=== PATIENT | male | born 1980 | race Two or more races ===

== ENCOUNTER 2018-02-26 17:23 | Emergency (ER) | payer OTHER ==
[~2018-02-26] VITALS: Ht 170.2 cm; Wt 81.8 kg
[~2018-02-26 17:23] MED LIST: NO HOME MEDS
[2018-02-26 18:21] VITALS: BP 143/79
== END 2018-02-26 18:23 ==
LOC: EEVIPCON 17:23 → ER 17:23
DX: K46.9 Unspecified abdominal hernia without obstruction or gangrene (principal); Z98.890 Other specified postprocedural states; Z56.0 Unemployment, unspecified
CPT/HCPCS: 99283

== ENCOUNTER 2024-12-08 07:12 | Emergency (ER) | payer MEDICAID, OTHER ==
[~2024-12-08] VITALS: Ht 170.2 cm; Wt 72.7 kg
[2024-12-08 07:15] VITALS: BP 132/87; PULSE 100; RESP 16; TEMP 97.6; O2SAT 100
[2024-12-08] MEDS ORDERED: BUPR1FIL3 SL (07:27)
== END 2024-12-08 07:35 | disposition home or self-care (01) ==
LOC: ER 07:13
DX: F11.10 Opioid abuse, uncomplicated (principal); Z56.0 Unemployment, unspecified; Z72.89 Other problems related to lifestyle; Z76.0 Encounter for issue of repeat prescription
CPT/HCPCS: 99281; 99283

== ENCOUNTER 2025-04-29 15:23 | Emergency (ER) | payer MEDICAID ==
[~2025-04-29] VITALS: Ht 170.2 cm; Wt 81.0 kg
[~2025-04-29 15:23] MED LIST changes: +BUPR1FIL3 SL
[2025-04-29 15:29] VITALS: BP 138/86; PULSE 93; RESP 18; O2SAT 100
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
[2025-04-29 17:02] VITALS: TEMP 97.6
[2025-04-29] MEDS: buprenorphine/naloxone 8MG-2MG SUBlingual film SL STA (17:02)
== END 2025-04-29 17:06 | disposition home or self-care (01) ==
LOC: ER 15:24
DX: F11.90 Opioid use, unspecified, uncomplicated (principal); Z76.0 Encounter for issue of repeat prescription; Z79.899 Other long term (current) drug therapy; Z72.89 Other problems related to lifestyle; Z56.0 Unemployment, unspecified
CPT/HCPCS: 99283

== ENCOUNTER 2025-05-06 13:27 | Emergency (ER) | payer MEDICAID ==
[~2025-05-06] VITALS: Ht 175.3 cm; Wt 82.9 kg
[2025-05-06 14:02] VITALS: BP 149/82; PULSE 89; RESP 18; O2SAT 98
--- NOTE | 2025-05-06 15:15 | Physician Documentation ---
History of Present Illness ~ Chief Complaint: Weakness Stated Complaint: DEHYDRATED Time Seen by MD: 14:07 OK to notify your PCP?: Yes Primary Medical Doctor: none Source: patient, RN/ HPI Patient is seen today with complaints of muscle soreness and stiffness over the last few days. Patient states he thinks he might be dehydrated yet he states he has drank almost a gal of water this morning. Patient states he is currently living at the [facility] and also states that he did over take his Suboxone yesterday and today stating he took five strips yesterday when he has only prescribed three per day. Patient denies any chest pain or shortness of breath or abdominal pain or nausea, vomiting, diarrhea. Patient has no other concern or complaint at this time. Medication Reconciliation Allergies: Coded Allergies: No Known Allergies (Unverified , 05/06/25) Scheduled Buprenorphine Hcl/Naloxone Hcl (Suboxone 8 Mg-2 Mg Sl Film), 1 STRIP SL DAILY, (Reported) Buprenorphine Hcl/Naloxone Hcl (Suboxone 8 Mg-2 Mg Sl Film), 1 STRIP SL DAILY Discontinued Medications Buprenorphine Hcl/Naloxone Hcl (Suboxone 8 Mg-2 Mg Sl Film), 1 STRIP SL DAILY, (Reported) Discontinued Reason: patient no longer taking Home Med List (No Home Medications), (Reported) Discontinued Reason: patient no longer taking Past Medical History Past Medical History: No Pertinent History Past Surgical History: abdominal surgery Alcohol Use: Occasionally Lives with: Other Occupation: unemployed Review of Systems Constitutional: Denies: chills, fever, weakness Eyes: Denies: pain, blurred vision ENT: Denies: ear pain, nose pain, throat pain, mouth pain Respiratory: Denies: cough, shortness of breath Cardiovascular: Denies: chest pain, palpitations Gastrointestinal: Denies: abdominal pain, nausea, vomiting Genitourinary: Denies: burning, dysuria Male Genitalia: Denies: penile discharge, testicular pain Neurological: Denies: headache, dizziness Musculoskeletal: Denies: pain, swelling Integumentary: Denies: rash, lesions Allergic/Immunologic: Denies: hives, itching Hematologic/Lymphatic: Denies: no symptoms reported Psychiatric: Denies: depression, anxiety Physical Exam Vital Signs: Temperature: 97.8, Source: Temporal, Heart Rate: 89, Respiratory Rate: 18, BP: 149/82, Pulse Oximetry: 98, Weight: 82.900 Physical Exam General: Awake and Alert, no acute distress. HEENT: Conjunctiva pink, Sclera clear, Mucus Membranes moist. Neck: Supple without masses and tenderness. Resp: Unlabored. Lungs clear to auscultation bilaterally. Heart: Regular Rate and rhythm, normal S1 and S2 without murmur, rub or gallop. Abdomen: Soft and non tender no organomegaly Extremities: No cyanosis,clubbing or edema. Skin: Warm and Dry. Progress Results/Orders Results/Orders Vital Signs 05/06/25 14:02 Temp 97.8 Pulse 89 Resp 18 B/P (MAP) 149/82 Pulse Ox 98 Medical Decision Making Findings Patient is seen today with complaints of muscle soreness and stiffness over the last few days. Patient states he thinks he might be dehydrated yet he states he has drank almost a gal of water this morning. Patient states he is currently living at the [facility] and also states that he did over take his Suboxone yesterday and today stating he took five strips yesterday when he has only prescribed three per day. Patient denies any chest pain or shortness of breath or abdominal pain or nausea, vomiting, diarrhea. Patient has no other concern or complaint at this time. I did strongly advise patient to not over take his Suboxone anymore. I also advised patient to continue healthy diet and exercise level and stay well hydrated. Patient was given a pair of socks. Patient will return to ED with any worsening, concerning or changing symptoms. Departure Disposition: HOME / SELF CARE / HOMELESS Impression: Primary Impression: Opioid use disorder Condition: Improved Additional Instructions: I did strongly advise patient to not over take his Suboxone anymore. I also advised patient to continue healthy diet and exercise level and stay well hydrated. Patient was given a pair of socks. Patient will return to ED with any worsening, concerning or changing symptoms. Referrals: NO PRIMARY CARE PROVIDER (PCP) Signature Scribe Signature: No scribe Attestation: No scribe LUIS A CLIFFORD PAC May 06, 2025 15:15
[2025-05-06 15:25] VITALS: TEMP 97.8
== END 2025-05-06 15:28 | disposition home or self-care (01) ==
LOC: ER 13:28
DX: F11.10 Opioid abuse, uncomplicated (principal); Z79.899 Other long term (current) drug therapy; Z72.89 Other problems related to lifestyle; Z56.0 Unemployment, unspecified
CPT/HCPCS: 99283

== ENCOUNTER 2025-07-28 15:35 | Emergency (ER) | payer MEDICAID ==
[~2025-07-28] VITALS: Ht 170.2 cm; Wt 77.3 kg
[~2025-07-28 15:35] MED LIST changes: -NO HOME MEDS
[2025-07-28 15:39] VITALS: TEMP 97.8
[2025-07-28] MEDS ORDERED: buprenorphine/naloxone 8MG-2MG SUBlingual film SL SCH ×2 (16:00→17:05)
--- NOTE | 2025-07-28 16:46 | Physician Documentation ---
HPI ~ General Chief Complaint: Medication Request Stated Complaint: MED REQUEST Time Seen by MD: 15:40 Primary Medical Doctor: none History of Present Illness HPI Comments Patient is a 45-year-old male that presents to the emergency department for medication administration. Patient reports that he was seen here this morning and given his dose of Suboxone. Patient reports that he doubled up on his Suboxone due to the dose that he was given this morning not being adequate as he takes 24 mg a day not 12 per patient. Patient does not have a follow up appointment until Monday to see a primary care provider or provider that helps him with his rehabilitation. Patient reports that he does not believe that he is currently having any withdrawal symptoms but he does not want to withdrawal later. Medication Reconciliation Allergies: Coded Allergies: No Known Allergies (Unverified , 07/28/25) Scheduled Buprenorphine Hcl/Naloxone Hcl (Suboxone 8 Mg-2 Mg Sl Film), 1 STRIP SL DAILY, (Reported) Past Medical History Past Medical History: No Pertinent History Past Surgical History: abdominal surgery Alcohol Use: Occasionally Lives with: Other Occupation: unemployed Review of Systems ROS As stated above in the HPI, otherwise all systems are reviewed and negative. Physical Exam Physical Exam Vital Signs: Temperature: 97.8, Source: Temporal, Heart Rate: 87, Respiratory Rate: 18, BP: 130/91, Pulse Oximetry: 98, Weight: 77.270 Physical Exam VITALS: Reviewed and as above. GENERAL: Alert, no apparent distress. HEENT: Normocephalic, atraumatic, PERRL, EOMI, dry mucosa, no erythema RESPIRATORY: Lungs clear, normal breath sounds, no respiratory distress. CHEST: No accessory muscle use, no retractions CV: Regular rate, rhythm, no edema, no murmur, No: JVD GI: Soft, non-tender, bowels sounds present, no rebound, guarding, or rigidity BACK: No CVA tenderness, or swelling MUSCULOSKELETAL No deformities, no edema SKIN: Warm and dry, no rash NEURO: Oriented x4, No motor or sensory deficit PSYCH: Normal mood and affect, no agitation Progress Results/Orders Results/Orders Orders - JAELYN WEBSTER CURB WORKER Buprenorphine/Naloxone Sl Film (Suboxone (07/28/25 16:00) Vital Signs 07/28/25 15:39 Temp 97.8 Pulse 87 Resp 18 B/P (MAP) 130/91 Pulse Ox 98 Medical Decision Making Additional info obtained from: other Findings This patient presents with back pain most consistent with musculoskeletal spasm /strain/cervical radiculopathy. No back pain red flags on history or physical. Presentation not consistent with malignancy (lack of history of malignancy, lack of B symptoms), fracture (no trauma, no bony tenderness to palpation), transverse myelitis, (no sensory loss, no distal weakness), thoracic aortic dissection (equal peripheral pulses, no tachycardia, story does not fit), pn eumonia (afebrile, no infectious symptoms), pulmonary embolism (Wells low risk), osteomyelitis or epidural abscess (no IVDU, vertebral tenderness). No concern for cardiac involvement at this time has 12 lead chest x-ray troponin and lab work all normal. X-ray of the cervical spine is without abnormality other than degenerative changes this time. Patient was given Toradol and Fl exeril with significant improvement. Patient will be prescribed 5 days of Toradol with strict instructions and education regarding how to take this medication. Patient was educated on not driving or operating equipment while taking this medication. Patient was also instructed to not take the medication if his symptoms subside and he does not need the medication. With his primary care provider. Patient will return to the emergency department with any worsening of his current symptoms or any additional concerning symptoms that we discussed here today i.e. increased pain increased numbness or tingling in his extremities fever chills nausea vomiting bladder incontinence numbness to his perineum or any other concerning symptoms that we discussed here today. Differential Dx:Considerations: Include: Adverse circumstances, Economic, Psychosocial, Medical services unavail., Medication refill, Medication non- compliance, Other Departure Disposition: HOME / SELF CARE / HOMELESS Impression: Primary Impression: General medical exam Additional Impression: Encounter for monitoring Suboxone maintenance therapy Condition: Stable Discharge Instructions: Medicine Refill at the Emergency Department, Medical Screening Exam Additional Instructions: Was seen here in the emergency department today for evaluation of medication administration of his Suboxone that he takes for opioid addiction specifically fentanyl. Patient was seen here this morning and given a dose of of Suboxone time. Patient reports that he was given an additional dose for tomorrow but he took that dose today due to the initial dose only being half of what he is supposed to take daily. Patient reports that he has a follow up appointment monday and will start withdrawing or have to use fentanyl again if he does not get a dose of Suboxone. Patient was given 12 mg of Suboxone here today patient will follow up tomorrow and either request clonidine or Suboxone. Discussed with the patient that it will be provider dependent tomorrow and that the patient needs to follow up with his rehabilitation tech on Monday. Referrals: NO PRIMARY CARE PROVIDER (PCP) Education Educated: Patient Educated regarding: diagnosis, treatment, need for follow up Signature Scribe Signature: A Attestation: Scribed for Jaelyn Webster by SHIRLENE Cespedes . 07/28/25 16:47 JAELYN WEBSTER Jul 28, 2025 16:46
[2025-07-28 17:14] VITALS: BP 130/91; PULSE 87; RESP 16; O2SAT 98
[2025-07-28] MEDS: buprenorphine/naloxone 8MG-2MG SUBlingual film SL SCH (17:31)
== END 2025-07-28 17:42 | disposition home or self-care (01) ==
LOC: ER 15:35
DX: Z00.00 Encounter for general adult medical examination without abnormal findings (principal); Z51.81 Encounter for therapeutic drug level monitoring
CPT/HCPCS: 99283

== ENCOUNTER 2025-07-29 05:21 | Emergency (ER) | payer MEDICAID ==
[~2025-07-29] VITALS: Ht 170.2 cm; Wt 75.8 kg
[2025-07-29 05:36] VITALS: TEMP 97.7
[2025-07-29] MEDS ORDERED: buprenorphine/naloxone 8MG-2MG SUBlingual film SL SCH (08:00)
--- NOTE | 2025-07-29 08:12 | Physician Documentation ---
HPI ~ General Chief Complaint: Medication Request Stated Complaint: MEDICATION REQUEST Time Seen by MD: 07:53 Primary Medical Doctor: none Source: patient Mode of Arrival: Ambulatory Exam Limitations: no limitations History of Present Illness HPI Comments Chief Complaint: Needs Suboxone Caveat: None Independent Historians: None History of Present Illness: Patient is a 45-year-old man who comes in requesting a dose of Suboxone. He ran out two days ago because he took extra due to not feeling well. Patient was seen here yesterday for a dose. Patient is scheduled to see his provider tomorrow for a refill. Patient states that he takes three strips of 8 mg Suboxone. This is confirmed through a cures report. Review of systems: All systems were reviewed and are negative except for what is indicated in the history of present illness. Past Medical History: HTN Past Surgical History: None Social History: Recently quit tobacco use, denies drug use Medications: Reviewed as documented Nursing Notes Allergies: Reviewed as documented in Nursing Notes Medication Reconciliation Allergies: Coded Allergies: No Known Allergies (Unverified , 07/28/25) Scheduled Buprenorphine Hcl/Naloxone Hcl (Suboxone 8 Mg-2 Mg Sl Film), 1 STRIP SL DAILY, (Reported) Past Medical History Past Medical History: No Pertinent History Past Surgical History: abdominal surgery Alcohol Use: Occasionally Lives with: Other Occupation: unemployed Review of Systems All Other Systems at this time: Reviewed and Negative ROS Patient denies any other acute symptoms other than above. All other systems are negative Physical Exam Physical Exam Vital Signs: RN Vital Signs have been reviewed: Yes, Temperature: 97.7, Heart Rate: 89, Respiratory Rate: 16, BP: 120/81, Pulse Oximetry: 98, Weight: 75.770 Oxygen Flow Rate: 0 Pulse Oximetry Reflects: adequate oxygenation Physical Exam General Appearance: No distress HEENT: Normal OP, moist oral mucosa, PERRL, EOMI Neck: supple, normal ROM, trachea midline Pulmonary: No respiratory distress, CTA, BS equal Cardiac: RRR, no murmur, rub or gallop, GI: nondistended, soft, nontender, normal bowel sounds, no guarding, no rebound Extremities: normal ROM, no swelling, non-tender Skin: intact, dry, warm, no rashes Neuro: AAOx3, speech is clear, no focal motor weakness Psych: normal affect, good eye contact, no apparent hallucination, normal speech Progress Results/Orders Results/Orders Completed Orders - SHALONDA DOS SANTOS MD Buprenorphine/Naloxone Sl Film (Suboxone (07/29/25 08:00) Vital Signs 07/29/25 07/29/25 07/29/25 05:36 08:16 08:21 Temp 97.7 Pulse 89 95 65 Resp 16 16 16 B/P (MAP) 120/81 135/71 (92) 135/71 Pulse Ox 98 96 95 O2 Flow Rate 0 0 Medical Decision Making Additional info obtained from: old records (Go records and Cures report) Findings Differential diagnosis includes but is not limited to: History of polysubstance abuse, opiate withdrawal, opiate dependence, medication refill, medical noncompliance Emergency department course/medical decision-making: Patient is a 45-year-old man who was on Suboxone 24 mg once a day. Patient is getting two week supply at a time from local clinic. The patient states that he use extra earlier this last week and ran out. Patient was last seen here yesterday was given a dose of Suboxone in the ER. Patient requires of one more single dose and we will be able to get his prescription from his provider tomorrow. Patient is feeling okay now with minimal to no symptoms. Patient is given 24 mg of Suboxone here and is stable for discharge. Differential Dx:Considerations: Include: Other (See above) Departure Time of Disposition: 08:08 Disposition: 01 HOME / SELF CARE / HOMELESS Impression: Primary Impression: Opiate dependence Qualified Codes: F11.20 - Opioid dependence, uncomplicated Condition: Stable Discharge Instructions: Medical Screening Exam Additional Instructions: FOLLOW UP WITH THE CLINIC TOMORROW FOR YOUR SUBOXONE PRESCRIPTION. Referrals: NO PRIMARY CARE PROVIDER (PCP) Education Educated: Patient Educated regarding: diagnosis, treatment, need for follow up Signature Scribe Signature: No scribe Attestation: No scribe SHALONDA DOS SANTOS MD Jul 29, 2025 08:12
[2025-07-29 08:21] VITALS: BP 135/71; PULSE 65; RESP 16; O2SAT 95
== END 2025-07-29 08:22 | disposition home or self-care (01) ==
LOC: ER 05:22
DX: F11.20 Opioid dependence, uncomplicated (principal); I10 Essential (primary) hypertension; Z56.0 Unemployment, unspecified; Z72.89 Other problems related to lifestyle
CPT/HCPCS: 99282

== ENCOUNTER 2025-08-22 03:48 | Emergency (ER) | payer MEDICAID ==
[~2025-08-22] VITALS: Ht 177.8 cm; Wt 74.0 kg
[2025-08-22 04:10] VITALS: O2SAT 99
--- NOTE | 2025-08-22 06:32 | Physician Documentation ---
HPI ~ General Chief Complaint: Medication Request Stated Complaint: MED REQUEST Primary Medical Doctor: none History of Present Illness HPI Comments Requesting dose of suboxone as does not have appointment with PCP until Monday. Medication Reconciliation Allergies: Coded Allergies: No Known Allergies (Unverified , 07/28/25) Scheduled Buprenorphine Hcl/Naloxone Hcl (Suboxone 8 Mg-2 Mg Sl Film), 1 STRIP SL DAILY, (Reported) Past Medical History Past Medical History: No Pertinent History Past Surgical History: abdominal surgery Alcohol Use: Occasionally Lives with: Other Occupation: unemployed Review of Systems All Other Systems at this time: Reviewed and Negative Physical Exam Physical Exam Vital Signs: RN Vital Signs have been reviewed: Yes, Temperature: 97.6, Source: Temporal, Heart Rate: 78, Respiratory Rate: 15, BP: 112/65, Pulse Oximetry: 99, Weight: 74.000 Physical Exam Gen: no distress HEENT: PERRL, EOMI no neck or facial swelling, uvula midline Pulm: normal WOB, no distress Cardiac: deferred Abd: deferred Skin: w/d/i MSK: no deformity Neuro: nonfocal Psych: normal affect Progress Results/Orders Results/Orders Orders - CASI BAPTISTE MD Buprenorphine/Naloxone Sl Film (Suboxone (08/22/25 06:30) Vital Signs 08/22/25 04:10 Temp 97.6 Pulse 78 Resp 15 B/P (MAP) 112/65 Pulse Ox 99 Medical Decision Making Additional information obtaine: N/A Findings Provided dose, return precautions. Differential Dx:Considerations: Include: Adverse circumstances, Economic, Psychosocial, Medical services unavail., Medication refill, Medication non- compliance Departure Disposition: HOME / SELF CARE / HOMELESS Impression: Primary Impression: Opioid use disorder Condition: Stable Discharge Instructions: Medicine Refill at the Emergency Department Referrals: NO PRIMARY CARE PROVIDER (PCP) Education Educated: Patient Educated regarding: diagnosis, treatment, prognosis, need for follow up Signature Scribe Signature: . Attestation: . CASI BAPTISTE MD Aug 22, 2025 06:32
[2025-08-22 06:37] VITALS: BP 123/79; PULSE 70; RESP 16; TEMP 98.6
[2025-08-22] MEDS: buprenorphine/naloxone 8MG-2MG SUBlingual film SL SCH (06:48)
== END 2025-08-22 06:51 | disposition home or self-care (01) ==
LOC: ER 03:49
DX: F11.10 Opioid abuse, uncomplicated (principal)
CPT/HCPCS: 99283